=== PATIENT | female | born 1980 | race Hispanic/Latino ===

== ENCOUNTER 2017-07-19 08:20 | Emergency (ER) | payer OTHER ==
[~2017-07-19] VITALS: Ht 154.9 cm; Wt 66.7 kg
[~2017-07-19 08:20] MED LIST: CLONAZEPAM0.5 MG PO; LEXAPRO10 MG PO; TYLENOL WITH C1 EACH PO
[2017-07-19] MEDS ORDERED: KETOROLAC TROMETHAMINE 60 MG/2 ML VIAL IM ONE (09:15)
[2017-07-19] MEDS ORDERED: ROBAXIN-750750 MG PO (09:50)
[2017-07-19] MEDS ORDERED: KETOROLAC TROME10 MG PO (09:50)
[2017-07-19 10:17] VITALS: BP 118/68
== END 2017-07-19 10:11 | disposition home or self-care (01) ==
LOC: FSED 08:20
DX: M54.41 Lumbago with sciatica, right side (principal); M54.16 Radiculopathy, lumbar region; F41.9 Anxiety disorder, unspecified; F32.9 Major depressive disorder, single episode, unspecified
CPT/HCPCS: 80053; 81025; 85025; 99283; J1885